=== PATIENT | female | born 1990 | race Two or more races ===

== ENCOUNTER 2022-05-09 17:47 | Emergency (ER) | payer OTHER ==
[~2022-05-09] VITALS: Ht 165.1 cm; Wt 74.8 kg
--- NOTE | 2022-05-09 18:05 | NUR ---
PT C/O LOWER ABD PAIN X 4 DAYS. PT AAOX4, VSS. RR EVEN & UNLABORED. DENIES CP, SOB, DIZZIENSS, N/V AT THIS TIME. KEVIN OLMEDO AT BS FOR EVAL. WILL CONT TO MONITOR.
--- NOTE | 2022-05-09 18:42 | NUR ---
URINE COLLECTED AND SENT TO LAB
--- NOTE | 2022-05-09 18:43 | NUR ---
US TECH AT BEDSIDE
[2022-05-09 19:37] LABS: BILIRUBIN,URINE NEGATIVE (NEGATIVE); COLOR,URINE YELLOW (YELLOW); LEUKOCYTE ESTERASE ,URINE NEGATIVE (NEGATIVE); NITRITE, URINE NEGATIVE (NEGATIVE); PROTEIN,URINE NEGATIVE (NEGATIVE); UGLUCOSE NEGATIVE (NEGATIVE)
[2022-05-09 19:54] LABS: RBC,URINE 0-2 /HPF (0-2); WBC,URINE 0-2 /HPF (0-3)
[2022-05-09 19:55] LABS: BACTERIA,URINE None seen /HPF (None Seen); MUCUS,URINE Few /LPF (None Seen); SQUAMOUS EPITHELIAL CELL,UR 0-2 /HPF (None Seen)
[2022-05-09] MEDS ORDERED: KETO10TA2 PO (21:14)
[2022-05-09] MEDS ORDERED: TRAM50TA2 PO (21:15)
--- NOTE | 2022-05-09 21:26 | NUR ---
Patient discharged to home in stable condition. Written and verbal after care instructions given. Patient verbalizes understanding of instruction.
[2022-05-09 21:27] VITALS: BP 140/77
== END 2022-05-09 21:27 | disposition home or self-care (01) ==
LOC: ER 17:54
DX: N83.201 Unspecified ovarian cyst, right side (principal); Z79.899 Other long term (current) drug therapy
CPT/HCPCS: 76856-TC; 81001; 84703-TC